=== PATIENT | female | born 1955 | race Caucasian/White ===

== ENCOUNTER 2025-09-09 22:12 | Emergency (ER) | payer MEDICARE, SELFPAY ==
--- OUTSIDE RECORDS SUMMARY | 2025-09-09 22:17 | XMS_ITS | Clinical Summary ---
Author Organization [facility] Address [address] [place] [address] Care Team Providers Care Guardian Ad Litem Name Role Phone Queenie Canales DO Primary Care Provider [phone] Unavailable [phone] Allergies Active Allergy Reactions Criticality Noted Date Comments Lisinopril Cough 10/26/2009 Medications ASPIRIN 81 MG TAB, DELAYED RELEASE 1 tab daily ? 0 10/17/20 05 Active blood-glucose meter (ONE TOUCH ULTRA 2) Dispense glucose meter, test strips and lancets covered by the patient insurance. Test 1 times per day. 1 Device 0 02/28/20 14 Active famotidine (PEPCID) 20 mg tablet Take by mouth two times daily. as needed 0 04/04/20 22 Active lancets (OneTouch Delica Plus Lancet) 33 gauge miscIndications:Type 2 diabetes mellitus with microalbuminuria (HC) As directed. Dispense item covered by pt ins. E11.65 NIDDM type II, uncontrolled - Test 1 time/day 100 Each 3 02/05/20 24 Active Blood Pressure Monitor (Blood Pressure Kit) KitIndications:Essen tial hypertension Diagnosis: hypertension Use as directed XL cuff size 1 Each 03/14/20 24 Active blood sugar diagnostic (OneTouch Ultra Test) stripIndications:Typ e 2 diabetes mellitus with diabetic neuropathy, without long-term current use of insulin (HC) TEST ONCE A DAY 100 Each 3 11/11/20 24 Active empagliflozin (JARDIANCE) 25 mg tabletIndications:Ty pe 2 diabetes mellitus with diabetic neuropathy, without long-term current use of insulin (HC) Take 1 Tablet (25 mg) by mouth once daily. 100 Tablet 3 01/04/20 25 Active amLODIPine (NORVASC) 10 mg tabletIndications:Es sential hypertension Take 1 Tablet (10 mg) by mouth once daily. 100 Tablet 3 01/04/20 25 Active glipiZIDE extended-release (GLUCOTROL XL) 10 mg Extended-Release tabletIndications:Ty pe 2 diabetes mellitus with diabetic neuropathy, without long-term current use of insulin (HC) Take 1 Tablet (10 mg) by mouth two times daily before meals. 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 100 Tablet 3 01/04/20 25 Active pravastatin (PRAVACHOL) 20 mg tabletIndications:Mi xed hyperlipidemia Take 1 Tablet (20 mg) by mouth at bedtime. 100 Tablet 3 01/04/20 25 Active buPROPion (WELLBUTRIN XL) 150 mg Extended-Release tabletIndications:De pression, major, single episode, mild Take 1 Tablet (150 mg) by mouth once daily in the morning. 100 Tablet 3 06/19/20 25 Active triamcinolone (ARISTOCORT; KENALOG) 0.1 % creamIndications:Bug bite, initial encounter Apply topically to affected area(s) two times daily. To rash up to twice daily. 30 g 06/19/20 25 Active losartan-hydrochloro thiazide (HYZAAR) 100-25 mg tabletIndications:Es sential hypertension Take 1 Tablet by mouth once daily. 100 Tablet 3 06/19/20 25 Active atenoloL (TENORMIN) 50 mg tabletIndications:Es sential hypertension Take 1 Tablet (50 mg) by mouth two times daily. 200 Tablet 3 06/19/20 25 Active Active Problems Problem Noted Date Diagnosed Date Diabetic peripheral neuropathy 03/14/2024 Depression, recurrent 10/12/2023 Type 2 diabetes mellitus wit h microalbuminuria, without long-term current use of insulin 09/19/2022 Morbid obesity with BMI of 45.0-49.9, adult 03/23 Mixed hyperlipidemia 04/06/2022 Anemia 03/08/2022 Hyponatremia 08/13/2017 Overview (08/13/2017): Jul 2017: Sodium 130. Microalbuminuria 10/12/2009 Essential hypertension 08/25/2006 Overview (08/22/2016): Goal blood pressure less than 140/90 ASTIGMATISM REGULAR 07/31/2006 Presbyopia 07/31/2006 Myopia 07/31/2006 GLAUCOMA SUSPECT OPEN ANGLE 07/31/2006 Type 2 diabetes mellitus with microalbuminuria 0 01/08/2006 Overview (02/01/2016): Stopped lisinopril due to cough GERD 11/14/2004 Overview (05/06/2010): EGD 04/2009 normal HYPERCHOLESTEROLEMIA, PURE 11/14/2004 Obesity, morbid, BMI 40.0-49.9 12/19/1999 Resolved Problems Problem Noted Date Diagnosed Date Resolved Date NEURONITIS, VESTIBULAR 08/15/200202/04 DISORDER, TOBACCO USE 12/19/19992011 INFECTION, BACTERIAL D/T HELICOBACTER PYLORI 0 02/04/2007 DIABETES MELLITUS, UNCOMPLICATED 11/29/1999 01/08/2006 Encounters Date Type Department Care Team Description 09/06/2025 [place] [facility] [place] [address] [place], [place] [id number] Queenie Canales, DO Medication Management 08/15/2025 11:45 AM CDT Nurse/Clinic Staff Only [facility] [place] [address] [place], [place] [id number] Immunization/Inject ion (flu vaccine) 08/15/2025 Travel 07/20/2025 [place] [facility] [place] [address] [place], [place] [id number] Queenie Canales, Results (needs clarity regarding her results , for her encounter on 06/28/25) 07/10/2025 9:00 AM CDT Patient Outreach [facility] [address] [place] [address] [address] Diabetes (Assessment, A1c 8.4) 07/10/2025 Travel 06/30/2025 10:00 AM CDT Office Visit [facility] [place] [facility] [address] [place] [address] John Saxena, OD Eye Exam (DM CEE) 06/30/2025 Travel 06/28/2025 9:00 AM CDT Ancillary Procedure [facility] [address] [place] [address] 06/28/2025 Travel 06/19/2025 7:55 AM CDT [place] [facility] [place] [address] [place] [address] Queenie Canales DO Medicare ANNUAL (subsequent) Visit; Diabetes; Medication Management 06/19/2025 Travel from Last 3 Months Immunizations Immunization Administration Dates Next Due AMB Influenza, IIV3 (Age >=3 years)(Flu Clinic Only) 08/26/2013,09/09/2011,09/13/2008 AMB Influenza, IIV4 PF (=>6 mos Flulaval,Fluzone Fluarix)(Flu Clinic Only) 08/23/2014 COVID-19 vaccine (Moderna 50mcg/0.5mL) 12YO+ BIVALENT PF, MDV 09/19/2022 COVID-19 vaccine (Pfizer-Bio NTech 30mcg/0.3mL) PF, MDV 11/21/2021,03/18/2021,02/25/2021 HepA-HepB (Twinrix) 08/22/2016,03/29/2015,2013 INFLUENZA, IIV3 PF (AGE >= 6 MO) 09/09/2011,07/25 Influenza A (H1N1), Inactivated 09/27/2009 Influenza, IIV3 (Age >=3 years) 08/12/20 12,08/21/2010,09/14/2007,2005,10/17/2005,12/03/2004,11/14/2004,1 12/05/2002,12/13/2001,10/08/2000, 997 Influenza, IIV4 09/02/2021, 0,08/12/2019,2016,08/22/2016,07/31/2015 Influenza, IIV4 (=>6mos) MDV 09/09/2018 Influenza, Inactivated AIIV4 (Age 65+ Years) Preserv Free 09/14/2023,09/19/2022 Influenza, Inactivated IIV3 (Age 65+ Years) Preserv Free 08/15/2025,08/25/2024 Pneumococcal Conj 20-valent (Prevnar 20) 01/05/2023 Pneumococcal Poly,23-Valent (Pneumovax) 12/20/2021 Td (Age >=7 Years) 10/18/1997 Td, Preservative Free (age > = 7 Years) 04/14/2017 Tdap 02/11/2007 Zoster (Shingrix-RZV, recombinant) 09/02/2021, Family History Medical History Relation Name Comments Cancer-colon Father Diabetes Father Heart Disease Father Quad bypass in early 70's Heart Disease Maternal Grandfather MA 60' s Heart Disease Maternal Uncle Mi 60's Heart Disease Mother Cancer-breast Other 1st cousin Genetic Other Mother: A\T\W~F ather: glaucoma,AODM, CABG~GrPrs: MA, Bar~Uncle: MA~Sibs: one brother A\T\W Jose L's disease Sister younger si ster as a baby from jos el's disease Relation Name Status Comments Father Alive Maternal Grandfather Maternal Uncle Mother Other Sister Social History Tobacco Use Types Packs/Day Years Used Date Smoking Tobacco: Former Cigarettes 1 20 0 11/23/1979 - 11/23/1999 Passive Smoke Exposure: Past Smokeless Tobacco: Never Tobacco Cessation:Counseling Given: Not Answered Comments:quit in 1997 Alcohol Use Standard Drinks/Week Comments Yes 0 (1 standard drink = 0.6 oz pur e alcohol) 2-3 drinks per year PHQ-2 Answer Date Recorded PHQ-2 TOTAL SCORE 2 06/19/2025 Social Connections Answer Date Recorded Do you often feel lonely or isolated from those around you? 0 01/04/2025 Financial Resource Strain Answer Date R ecorded Difficulty of Paying Living Expenses 3 01/04/2025 Difficulty of Paying Living Expenses Not on file 01/04/2025 Food Insecurity Answer Date Recorded Do you worry your food will run out before you are able to buy more? 1 01/04/2025 Transportation Needs Answer Date Record ed Does lack of transportation keep you from medica l appointments? 1 01/04/2025 Does lack of transportation keep you from work, meetings or getting things that you need? 1 01/04/2025 Housing Stability Answer Date Recorded What is your housing situation today? 1 01/04/2025 Utilities Answer Date Recorded Do you have trouble paying f or utilities (for example, heat, electricity, water, phone)? 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 Gender Identity Not on file Sexual Orientation Not on file Obstetrics History Para Term AB IAB SAB Ectopic Multiple Livin g Live Births 1 0 0 0 1 0 1 0 0 0 Date Outcome GA Total Labor Labor/2nd/3rd Weight Sex Type Anes PTL Lorena A1 A5 Name Clin SAB Last Filed Vital Signs Vital Sign Reading Time Taken Comments Blood Pressure 132/72 06/19/2025 8:09 AM CDT Pulse 69 06/19/2025 8:09 AM CDT Temperature 36.6 C (97.9 F) 03/08/2022 10:43 PM CDT Respiratory Rate 18 01/04/2025 10:2 8 AM SECURITY SERVICES MANAGER Oxygen Saturation 98% 06/19/2025 8:09 AM CDT Inhaled Oxygen Concentration - - Weight 112.4 kg (247 lb 12.8 oz) 06/19/2025 8:09 AM CDT Height 157.5 cm (5' 2.01) 06/19/2025 8:09 AM CD T Body Mass Index 45.31 06/19/2025 8:09 AM CDT Plan of Treatment Health Maintenance Due Date Last Done Comments Colonoscopy through age 75 2001 RSV vaccine for adults or (1 - Risk 60-74 years 1-dose series) 2016 COVID-19 vaccine series ( season) 2025 09/19/2022, 11/21/2021, 03/18/2021, Additional history exists BMI (ht and wt on same day) for age 18+ 06/19/2026 06/19/2025, 09/21/2024, 03/14/2024, Additional history exists Medicare Wellness for age 65+ 06/20/2026 06/19/2025, 03/14/2024 Depression screening for age 12+ 06/28/2026 06/28/2025, 06/19/2025, 01/04/2025, Additional history exists Mammogram for age 45-75 06/28/2026 06/28/20 25, 04/20/2024, 04/04/2022, Additional history exists Tetanus booster 04/14/2027 04/14/2017, 01/22, 10/18/1997 Lipids for age 45-75 06/19/2030 06/19/2025, 06/17/2024, 06/19/2023, Additional history exists Hepatitis C screening for ag e 18-79 Completed 06/21/2014, 06/21/2014, 11/06/2000 Hepatitis B series for 19+ Completed 08/22, 03/29/2015, 02/22/2014 Zoster (shingles) series for age 50+ Completed 09/02/2021, 07/09/2021 Pneumococcal series for age 50+ Completed , 12/20/2021 DEXA/DXA scan for age 65+ Completed 04/20/2024 Influenza Vaccine Completed 08/15/2025, , 09/14/2023, Additional history exists Goals Goal Patient Goal Type Associated Problems Recent Progress Patient-Stated? Author BLOOD PRESSURE - MAINTAINS BP less than 140/90 Blood Pressure No Kiana Che MD Procedures Procedure Name Priority Date/Time Associated Diagnosis Comments XR MAMMO SARITA BILAT SCREEN Routine 06/28/2025 9:11 AM CDT Visit for screening mammogram HEMOGLOBIN A1C MONITORING (POCT) Routine 06/19/2025 7:54 AM CDT Type 2 diabetes mellitus with diabetic neuropathy, without long-term current use of insulin (HC) COMP METABOLIC PANEL Routine 06/19/2025 7:53 AM CDT Essential hypertension LIPID PANEL W REFLEX MEASURED LDL Routine 06/19/2025 7:53 AM CDT Mixed hyperlipidemia XR DXA BONE DENSITY 2 SITES AXIAL Routine 04/20/2024 9:15 AM CDT Menopause ANTI HCV Routine 06/21/2014 8:17 AM CDT Need for hepatitis C screening test from Last 3 Months or Most Recently Relevant to Health Maintenance Results * XR MAMMO SARITA BILAT SCREEN (06/28/2025 9:11 AM CDT) Anatomical Region Laterality Modality BREASTS, Breast Left, Breast Right Bilateral Mammography Impressions 06/28/2025 3:39 PM CDT There is no radiographic evidence for malignancy. Recommend annual mammograms. MAMMOGRAM ASSESSMENT: ACR 1 Negative PATIENTS: You will also receive a letter with your examination results in an easy to read format. If you have questions about your results, please contact your referring provider. Narrative 06/28/2025 3:39 PM CDT For Patients: As a result of the Century Cures Act, medical imaging exams and procedure reports are released immediately into your electronic medical record. You may view this report before your referring provider. If you have questions, please contact your health care provider. XR MAMMO SARITA BILAT SCREEN [[id number]] CLINICAL HISTORY: This is an asymptomatic 69 y.o. patient. INDICATION FOR EXAM: Mammogram Screening. TECHNIQUE: CC and MLO views were obtained. This study was evaluated with the assistance of Computer-Aided Detection. Breast Tomosynthesis was used in interpretation. COMPARISON FILM: Yes 04/20/24 [facility] 04/04/22 [facility] FINDINGS: There are scattered areas of fibroglandular density. There are no dominant masses, suspicious micro calcifications or areas of architectural distortion. us Queenie Canales DO MAMMO Final Resul t * (ABNORMAL) HEMOGLOBIN A1C MONITORING (POCT) (06/19/2025 7:54 AM CDT) POC HEMOGLOBIN A1C 8.4(H) <6.0 % OF TOTAL HGB [facility] Comment: Any point of care results exhibiting inconsistency with the patient's clinical status should be repeated using a different testing method. Blood BLOOD SPECIMEN / Unknown 06/19/2025 7:54 AM CDT 06/19/2025 7:54 AM CDT us Queenie Canales DO CHEMISTRY Final Resul t [facility] [place] [address] [place] [address], [facility] [address], [place] [address] * (ABNORMAL) LIPID PANEL W REFLEX MEASURED LDL (06/19/2025 7:53 AM CDT) [facility] CHOLESTEROL, TOTAL 154 <200 mg/dL [facility] HDL CHOLESTEROL 43(L) > OR = 50 mg/dL [facility] TRIGLYCERIDES 186(H) <150 mg/dL [facility] LDL-CHOLESTEROL 83 mg/dL (calc) [facility] Comment: Reference range: <100 Desirable range <100 mg/dL for primary prevention; <70 mg/dL for patients with CHD or diabetic patients with > or = 2 CHD risk factors. LDL-C is now calculated using the Lowell-Juve calculation, which is a validated novel method providing better accuracy than the Friedewald equation in the estimation of LDL-C. Lowell SS et al. PEARL. 2013;310(19): 6138-4316 (http://education.Rabbit.Midokura/faq/FUL238) CHOL/HDLC RATIO 3.6 <5.0 (calc) [facility] NON HDL CHOLESTEROL 111 <130 mg/dL (calc) [facility] Comment: For patients with diabetes plus 1 major ASCVD risk factor, treating to a non-HDL-C goal of <100 mg/dL (LDL-C of <70 mg/dL) is considered a therapeutic option. Blood BLOOD SPECIMEN / Unknown 06/19/2025 7:53 AM CDT 06/19/2025 7:53 AM CDT us Queenie Robledo Parker DO CHEMISTRY Final Resul t [employer] [facility] [address] [place] [address], [facility] [address] [place] [address] * (ABNORMAL) COMP METABOLIC PANEL (06/19/2025 7:53 AM CDT) GLUCOSE 182(H) 65 - 99 mg/dL [facility] Comment: Fasting reference interval For someone without known diabetes, a glucose value >125 mg/dL indicates that they may have diabetes and this should be confirmed with a follow-up test. UREA NITROGEN (BUN) 27(H) 7 - 25 mg/dL [facility] CREATININE 0.74 0.50 - 1.05 mg/dL [facility] EGFR 88 > OR = 60 mL/min/1.7 3m2 [facility] BUN/CREATININE RATIO 36(H) 6 - 22 (calc) [facility] SODIUM 135 135 - 146 mmol/L [facility] POTASSIUM 4.4 3.5 - 5.3 mmol/L [facility] CHLORIDE 96(L) 98 - 110 mmol/L [facility] CARBON DIOXIDE 24 20 - 32 mmol/L [facility] CALCIUM 9.6 8.6 - 10.4 mg/dL [facility] PROTEIN, TOTAL 7.1 6.1 - 8.1 g/dL [facility] ALBUMIN 4.4 3.6 - 5.1 g/dL [facility] GLOBULIN 2.7 1.9 - 3.7 g/dL (calc) [facility] ALBUMIN/GLOBULIN RATIO 1.6 1.0 - 2.5 (calc) [facility] BILIRUBIN, TOTAL 0.6 0.2 - 1.2 mg/dL [facility] ALKALINE PHOSPHATASE 82 37 - 153 U/L [facility] AST 13 10 - 35 U/L [facility] ALT 15 6 - 29 U/L [facility] Blood BLOOD SPECIMEN / Unknown 06/19/2025 7:53 AM CDT 06/19/2025 7:53 AM CDT us Queenie Canales DO CHEMISTRY Final Resul t [employer] [facility] [address] [place] [address], [facility] [address] [place] [address] * XR DXA BONE DENSITY 2 SITES AXIAL [24801.1] (04/20/2024 9:15 AM CDT) Anatomical Region Laterality Modality Spine, HIPS, HIPL, HIPR Other Impressions 04/22/2024 4:44 PM CDT Normal bone density. RECOMMENDATIONS: The National Osteoporosis Foundation recommends pharmacologic treatment for patients with T-scores of -2.5 or less, patients with prior history of fragility fractures, or patients with 10-year probability of greater than 3% at hips or greater than 20% of suffering major osteoporotic fractures. Recommend continued optimization of calcium and vitamin D intake through dietary means and/or supplementation and regular exercise. Repeat scan recommended in 3-5 years. Rocio Alegria PA-C [employer] [facility] 04/22/2024 Narrative 04/22/2024 4:44 PM CDT For Patients: Results are automatically released to your [employer] ([employer]) account once available, in compliance with federal regulations. This means that you may see your results before your provider has had a chance to review them. Please allow 2-3 business days for your provider to comment on the results. XR DXA Bone Mineral Density (BMD) EXAM LOCATION: [facility] [address] [facility] [address] PATIENT NAME: Anneliese Das DATE OF : 1955 EXAM DATE: 04/20/2024 REQUESTING PROVIDER: Queenie Canales DO GENDER AT : female HEIGHT: 5' 2 (03/14/2024) WEIGHT: 262 lb 6.4 oz (03/14/2024) MENOPAUSAL STATUS: Postmenopausal RACE/ETHNICITY: White RISK FACTORS: Smoking (prior) and White Race CURRENT MEDICATION FOR BONE LOSS: NONE INDICATION: Initial scan for screening and Post-Menopause COMPARISON DATE(S): None DXA scans are compared to prior studies for a patient only when the two (or more) studies were performed on the same scanner. It is not possible to compare data generated on one scanner to data from another because there are not standards in DXA equipment. This applies even if the two scanners are made by the same coiled coil inspector. PROCEDURE: Dual-energy x-ray absorptiometry performed with routine technique. Reporting is completed in the form of a T-score. The T-score represents the standard deviation from peak bone mass based on young healthy adult. A Z-score is used for diagnosis in premenopausal women, and for men under the age of 50. FINDINGS: RESULT LUMBAR SPINE L1 - L4 BMD: 2.039 g/cm2 T-Score: + 6.8 Z-Score: + 7.3 Change from prior: None RESULTS FEMUR Left femoral neck BMD: 1.424 g/cm2 T-Score: + 2.8 Z-Score: + 3.6 Change from prior: None Right femoral neck BMD: 1.428 g/cm2 T-Score: + 2.8 Z-Score: + 3.6 Change from prior: None Left hip BMD: 1.446 g/cm2 T-Score: + 3.5 Z-Score: + 4.0 Change from prior: None Right hip BMD: 1.430 g/cm2 T-Score: + 3.3 Z-Score: + 3.8 Change from prior: None WHO criteria: Normal: T-score at or above -1 SD Osteopenia: T-score between -1.1 and -2.4 SD Osteoporosis: T-score at or below -2.5 SD us Queenie Canales DO DEXA Final Resul t * (ABNORMAL) ANTI HCV (06/21/2014 8:17 AM CDT) HEPATITIS C ANTIBODY Equivocal( A) Non-Reacti ve 06/22/2014 9:21 AM CDT [facility] Blood specimen (specimen) BLOOD SPECIMEN / Unknown Venipuncture / Unknown 06/21/2014 8:17 AM CDT 06/21/2014 8:17 AM CDT Narrative [facility] - 06/22/2014 9:21 AM CDT Equivocal; Reflexed to HCV RNA Quant (See separate report). us Kiana Che MD SEND OUTS Onelia l Result [facility] [address] [place] [address], from Last 3 Months or Most Recently Relevant to Health Maintenance Insurance [facility] MEDICARE ADVANTAGE MR Care Teams Guardian Ad Litem Relationship Specialty [place] [address] [place] [address] PCP - General Family Practice 04/13/[address] [place] [address] [place] [address] Regional Administrative Assistant Member Of Technical Staff 07/10/25 6
[2025-09-09 22:34] VITALS: BP 139/74; PULSE 89; RESP 20; TEMP 36.2; O2SAT 94; BMI 41.1
--- NOTE | 2025-09-09 22:56 | ED.GENADULT ---
HPI - General Adult General Time Seen by Provider: 22:56 Date Seen: 09/09/25 Chief complaint: Skin/Abscess/Foreign Body Stated complaint: skin reaction to medication, dry mouth Time Seen by Provider: 09/09/25 22:36 Source: patient, RN notes reviewed and old records reviewed Mode of arrival: ambulatory Limitations: no limitations History of Present Illness HPI narrative: Anneliese is a very pleasant 70-year-old female with history of type 2 diabetes currently on glipizide, metformin and Jardiance, history of hyperlipidemia on pravastatin, hypertension currently on atenolol, who comes to the emergency room with concerns about skin changes on her left leg and worries regarding Goodson-Gerald syndrome. Patient noted to have started on bupropion approximately 1-2 months ago. Yesterday she noted some spots on her left leg that she had not seen previous. She does not recall any trauma to the area and these do not hurt or cause itching. She states that today she had an episode of diarrhea that was very watery after having some stomach pain. She did take Gaviscon and it is improved. She notes that tonight she took her atenolol and had the onset of a hot flash with perspiration. Heart was not racing at that time and she did not feel like she was going to pass out. She talked to a friend who is a nurse and at that time her pulse is 88 and her blood pressure was 139/70. Her mouth has been very dry and she was reading the side effects from bupropion and became very concerned about Goodson-Gerald. Patient also notes that when she gets up and ends up walking to the kitchen she will get somewhat dizzy. This does go away and is only happening after she gets up suddenly. She notes that she has been experiencing some very bad gas. She denies fever. No recent changes in her medication. According to nursing notes she has spoken to her physician about this and does not feel that her physician is listening. Denies dysuria hematuria. States occasionally gets chest pain along the left lateral aspect of her chest wall. She had no chest pain today or at this time Patient does not feel that she needs appropriate in but some family members thought she did. She denies taking any cough medicines Benadryl or other medications today. Patient also notes significant shakiness prior to coming here. She also notes that recently she has been having abnormal dreams. She has been reading the side effects listed with this medication and is experiencing many of them. Related Data Home Medications ?Medication ?Instructions ?Recorded ?Confirmed amlodipine 10 mg tablet 10 mg PO DAILY 09/09/25 09/09/25 aspirin 81 mg tablet,delayed 81 mg PO DAILY 09/09/25 09/09/25 release atenolol 50 mg tablet 50 mg PO BID 09/09/25 09/09/25 bupropion HCl 150 mg 24 hr tablet, 150 mg PO DAILY 09/09/25 09/09/25 extended release empagliflozin 25 mg tablet 25 mg PO DAILY 09/09/25 09/09/25 (Jardiance) glipizide 10 mg tablet, extended 10 mg PO BID 09/09/25 09/09/25 release 24 hr losartan 100 1 tab PO DAILY 09/09/25 09/09/25 mg-hydrochlorothiazide 25 mg tablet metformin 1,000 mg tablet See Rx Instructions PO .COMPLEX 09/09/25 09/09/25 pantoprazole 40 mg tablet,delayed 40 mg PO DAILY 09/09/25 09/09/25 release pravastatin 20 mg tablet 20 mg PO DAILY 09/09/25 09/09/25 Allergies Allergy/AdvReac Type Severity Reaction Status Date / Time lisinopril Allergy Mild Cough Verified 09/09/25 22:41 Review of Systems Status of ROS: Reports: 10 or more systems reviewed and unremarkable except as noted in History and below Const: Denies: fever, chills or fatigue Eyes: Denies: change in vision or blurry vision ENMT: Denies: throat pain, neck pain or nasal congestion Cardio: Denies: chest pain or shortness of breath with exertion Resp: Denies: shortness of breath or cough GI: Reports: abdominal pain and diarrhea; Denies: nausea, vomiting or blood in stool : Denies: painful urination Musculo: Denies: back pain, neck pain or extremity pain Integ/Breast: Reports: new lesion Neuro: Denies: headache Endo: Denies: fatigue PFSH PFS Medical History 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 pylori infection ?A04.8 - Other specified bacterial intestinal infections (ICD-10) Unspecified essential hypertension ?I10 - Essential (primary) hypertension (ICD-10) Other premature beats ?I49.49 - Other premature depolarization (ICD-10) Obesity ?E66.9 - Obesity, unspecified (ICD-10) Non-insulin dependent diabetes mellitus Esophageal reflux ?K21.9 - Gastro-esophageal reflux disease without esophagitis (ICD-10) Social History Smoking Status: Never smoker Do you use any of these nicotine containing products: None Second hand tobacco smoke exposure: No How often do you have a drink containing alcohol: never AUDIT-C Alcohol total score: 0 Non-prescribed substance use: denies use Exam Narrative: Exam Narrative: Alert and oriented. Challenging to keep up with subject matter as she does have multiple complaints in different systems. External ears eyes nose clear. Heart with regular rate and rhythm and lungs are clear. Abdomen is soft nontender examination lower extremities shows of multiple lesions oblong in nature approximately 0.5 x 1 cm non blanchable. It almost appears if these are tight tiny dilated capillaries. They are flat. They partially yifan. No lesions otherwise noted. Limited to the left leg. Const: Vital Signs, click to edit/add: Vital Signs - 24 hr 09/09/25 22:34 Temperature 97.1 F L Pulse Rate [Left P ulse Oximeter] 89 Respiratory Rate 20 Blood Pressure [Ri ght Upper Arm] 139/74 Pulse Oximetry 94 Oxygen Delivery Me thod Room Air Documenting provider has reviewed patient's vital signs: yes Course Course ED Course: Differential diagnosis is quite broad. It does include erythema multiform a although this is limited to the left leg it is seems unlikely. No significant lesions to indicate shingles. Additional diagnoses include serotonin syndrome although her symptoms are not very consistent with that. At this time signs appear to be stable. She has no flushing of the face. She is not tachycardic. Will check labs include CBC, comprehensive, CRP, sed rate and urinalysis as she has some any complaints at this time. Reevaluation(s) Reevaluation #1: Patient had another what she describes as a hot flash. She had a hot flash on Thursday as well. Unfortunately she has still been experiencing these occasionally postmenopausal . Discussed elevated blood sugar of 309 which is very unusual for her. She does note that she had cookies today and did not exercise. Will recheck Accu-Chek at this time. Urinalysis negative for UTI. I will cancel the culture because patient unfortunately dropped the cup into the toilet. She did try to wipe it out but most likely this will cause the culture to be positive in she has no urinary symptoms. Will therefore cancel it as the inset of the cup has been contaminated with toilet water. Also discuss hemoglobin of 9.9. Patient is feeling much better than arrival without any interventions. Vital Signs Vital signs: Initial Vital Signs Temperature 97.1 F L 09/09/25 22:34 Temperature Source Temporal Artery Scan 09/09/25 22:34 Pulse Rate 89 09/09/25 22:34 Respiratory Rate 20 09/09/25 22:34 Blood Pressure 139/74 09/09/25 22:34 Blood Pressure Mean 95 09/09/25 22:34 Blood Pressure Position Sitting 09/09/25 22:34 Pulse Oximetry 94 09/09/25 22:34 Oxygen Delivery Method Room Air 09/09/25 22:34 Vital Signs Temperature 97.1 F L 09/09/25 22:34 Pulse Rate 89 09/09/25 22:34 Respiratory Rate 20 09/09/25 22:34 Blood Pressure 139/74 09/09/25 22:34 Pulse Oximetry 94 09/09/25 22:34 Oxygen Delivery Method Room Air 09/09/25 22:34 Temperature 97.1 F L 09/09/25 22:34 Pulse Rate 89 09/09/25 22:34 Respiratory Rate 20 09/09/25 22:34 Blood Pressure 139/74 09/09/25 22:34 Pulse Oximetry 94 09/09/25 22:34 Oxygen Delivery Method Room Air 09/09/25 22:34 Medical Decision Making MDM Narrative Medical decision making narrative: 1. New skin lesions-no evidence of Goodson-Gerald syndrome, shingles, life-threatening rash at this time. These have an appearance of slight bruising or almost trauma in etiology. Patient will follow-up primary MD for further evaluation. 2. Anxiety reaction-I do think patient was not feeling well with some diarrhea and abdominal pain which is largely resolved. Unfortunately she does get this from time to time and she was better with Gaviscon. I think the combination of finding the leg spots, the diarrhea and then reading the risks of bupropion use possibly caused a bit of an anxiety reaction. Her vital signs were stable upon arrival. Her laboratory values are reassuring at this time although her glucose is high. At this time she is feeling much better and I do not have an underlying cause for how she was feeling earlier. She certainly may be having some reaction to bupropion as she does describe bad dreams. If she wants to come off of it she will need to taper gradually over 2 weeks time but I would recommend talking to her regular doctor to see if she should do that. She herself does not think she needs this medication and if that is the case and her doctor agrees maybe she could gradually discontinue. No evidence of a serotonin syndrome, extra foraminal movements or neurological deficits. 3. Hyperglycemia-patient notes that she cannot recall a blood sugar this high. She does admit that she ate some cookies today and did not exercise. We will do an Accu-Chek to see if this has improved. She is currently on metformin, glipizide and Jardiance. Repeat glucose 250. Will allow her to go home. Water blood sugars. Encourage healthy eating and increase exercise. 4. Hyponatremia-patient states she has had that in the past. Tonight's level was 130. May add salt her foods if she would like. 5. Anemia-hemoglobin 9.9. Patient is not aware of previous value. No evidence of tachycardia or hypoxia tonight. Number 6. Diarrhea-1 episode tonight. Abdominal pain is improved. Patient does note that this happens occasionally to her. She has not have a fever, recently traveled and her belly is soft. 7. Disposition-home at this time. Return or seek medical attention for worsening symptoms. Reassurance at this time. Lab Data Lab results reviewed: Yes I reviewed the patient's lab results Labs: Lab Results 09/09/25 09/09/25 09/10/25 Range/Units 23:28 23:31 00:52 WBC 8.84 (4.50-11.00) K/uL RBC 4.15 (4.00-5.20) m/uL Hgb 9.9 L (12.0-16.0) gm/dL Hct 32.5 L (33.0-51.0) % MCV 78 L (80-100) fL MCH 24 L (26-34) pg MCHC 31 L (32-36) gm/dL RDW Coeff of Alia 15.7 H (11.5-15.5) % Plt Count 358 (140-440) K/uL Neut % (Auto) 73.4 H (42.0-72.0) % Lymph % (Auto) 17.1 L (20-44) % [place] % (Auto) 6.9 (0.0-11.0) % Eos % (Auto) 1.9 (0.0-7.0) % Baso % (Auto) 0.5 (0.0-3.0) % Neut # (Auto) 6.50 (1.7-7.0) K/uL Lymph # (Auto) 1.50 (0.90-2.90) K/uL [place] # (Auto) 0.60 (0.00-0.90) K/UL Eos # (Auto) 0.17 (0.00-0.50) K/uL Baso # (Auto) 0.04 (0.00-0.30) K/uL Abs Immat Gran (auto) 0.02 (0.00-0.30) K/uL Imm/Tot Granulo (auto) 0.2 % ESR 12 (2-20) mm/hr Sodium 130 L (135-149) mmol/L Potassium 4.5 (3.6-5.1) mmol/L Chloride 95 L (96-114) mmol/L Carbon Dioxide 24 (20-32) mmol/L Anion Gap 11 (7-15) mEq/L BUN 23 (7-30) mg/dL Creatinine 0.7 (0.5-1.5) mg/dL Estimated Creat Clear 43.92 Estimated GFR 94 ml/min Glucose 309 H (60-115) mg/dL Calcium 9.2 (8.4-10.6) mg/dL Total Bilirubin 0.3 (0.1-1.5) mg/dL AST 26 (12-35) U/L ALT 23 (4-35) U/L Alkaline Phosphatase 122 (40-150) U/L Total Creatine Kinase 29 L (41-117) U/L C-Reactive Protein 0.9 (0.5-1.0) mg/dL Total Protein 7.1 (6.0-8.3) g/dL Albumin 4.4 (3.3-5.0) g/dL Urine Color Yellow (Yellow) Urine Appearance Clear (Clear) Urine pH 5.5 (5.0-8.5) Ur Specific [place] 1.010 (1.000-1.030) Urine Protein Negative (Negative) Urine Glucose (UA) 2+ A (Negative) Urine Ketones Trace A (Negative) Urine Blood Negative (Negative) Urine Nitrite Negative (Negative) Urine Bilirubin Negative (Negative) Urine Urobilinogen 0.2 (0.2-1.0) Ur Leukocyte Esterase Negative (Negative) Urine RBC 0-2 (0-2) Urine WBC 0-2 (0-5) Ur Squamous Epith Cells None (None-Few) Urine Bacteria None (None) POC Glucose 250 H (60-115) mg/dl Discharge Plan Discharge Clinical Impression: Diarrhea, Shaking, Anxiety in acute stress reaction, Hyperglycemia Patient Disposition: Home, Self-Care Condition: Improved Additional Instructions: Check blood pressure sugars frequently. Please follow-up with your primary MD for recheck. Also-discussed with your primary about appropriate an and your wish to maybe go off of it. Return to the ER if you have worsening symptoms, red skin, difficulty breathing, chest pain and as needed. Prescriptions: No Action glipizide 10 mg tablet extended release 24hr 10 mg PO BID losartan-hydrochlorothiazide 100-25 mg tablet 1 tab PO DAILY amlodipine 10 mg tablet 10 mg PO DAILY metformin 1,000 mg tablet See Rx Instructions PO .COMPLEX Rx Instructions: Take one tablet twice a day with meals and 1/2 a tablet at noon orally; atenolol 50 mg tablet 50 mg PO BID bupropion HCl 150 mg tablet extended release 24 hr 150 mg PO DAILY Jardiance 25 mg tablet 25 mg PO DAILY pantoprazole 40 mg tablet,delayed release (DR/EC) 40 mg PO DAILY pravastatin 20 mg tablet 20 mg PO DAILY aspirin 81 mg tablet,delayed release (DR/EC) 81 mg PO DAILY Follow Up/Referrals: Provider,Not a Local [Primary Care Provider, Family Practice] Stand Alone [facility]: [facility] Info Instructions
[2025-09-09 23:37] LABS: Hematocrit* 32.5 % (33.0-51.0); Hemoglobin* 9.9 gm/dL (12.0-16.0); Immature Granulocytes Abs Auto 0.02 K/uL (0.00-0.30); Immature Granulocytes Pct Auto 0.2 %; Mean Corpuscular HGB Conc 31 gm/dL (32-36); Mean Corpuscular Hemoglobin 24 pg (26-34); Mean Corpuscular Volume 78 fL (80-100); RDW Coefficient of Variation % 15.7 % (11.5-15.5); Red Blood Count* 4.15 m/uL (4.00-5.20); White Blood Count* 8.84 K/uL (4.50-11.00)
[2025-09-09 23:42] LABS: Lymphocytes Absolute Auto 1.50 K/uL (0.90-2.90)
[2025-09-09 23:43] LABS: Slide Review Reflex No
[2025-09-09 23:45] LABS: Chloride* 95 mmol/L (96-114)
[2025-09-09 23:46] LABS: Albumin* 4.4 g/dL (3.3-5.0); Potassium* 4.5 mmol/L (3.6-5.1); Sodium* 130 mmol/L (135-149)
[2025-09-09 23:48] LABS: Blood Urea Nitrogen* 23 mg/dL (7-30); Creatinine* 0.7 mg/dL (0.5-1.5); Est. Creatinine Clearance* 43.92; Estimated Glomerular Filt Rate 94 ml/min
[2025-09-09 23:49] LABS: Alanine Aminotransferase* 23 U/L (4-35); Alkaline Phosphatase* 122 U/L (40-150); Anion Gap 11 mEq/L (7-15); Aspartate Amino Transferase* 26 U/L (12-35); Bilirubin Total* 0.3 mg/dL (0.1-1.5); Calcium* 9.2 mg/dL (8.4-10.6); Carbon Dioxide* 24 mmol/L (20-32); Creatine Kinase* 29 U/L (41-117); Glucose* 309 mg/dL (60-115); Total Protein* 7.1 g/dL (6.0-8.3)
[2025-09-10 00:28] LABS: Erythrocyte SedimentationRate* 12 mm/hr (2-20)
[2025-09-10 00:28] LABS: Appearance Urine Clear (Clear)
[2025-09-10 00:53] LABS: Glucose, Point-of-Care* 250 mg/dl (60-115)
== END 2025-09-10 01:07 | disposition home or self-care (01) ==
PROVIDERS: Emergency Provider Family Medicine
DX: R23.8 Other skin changes (principal); F41.9 Anxiety disorder, unspecified; E11.65 Type 2 diabetes mellitus with hyperglycemia; R19.7 Diarrhea, unspecified
CPT/HCPCS: 36415; 80053; 81001; 82550; 82947; 85025; 85651; 86140; 99284